=== PATIENT | male | born 1970 | race Caucasian/White ===

== ENCOUNTER → 2018-11-01 | Outpatient (CLI) | payer OTHER ==
--- NOTE | 2018-11-01 14:49 | RADIOLOGY IMAGING REPORT ---
FACILITY: [facility] - [place] PATIENT NAME: Jose Antunez : 1970 MR: [id number] V: [id number] EXAM DATE: ORDERING PHYSICIAN: JAMAR BALDERAS TECHNOLOGIST: Location: [facility] - [place] Patient: Jose Antunez : 1970 Visit/Account:[id number] Date of Sevice: 11/01/2018 Chest with lateral, two views. HISTORY: Chest pains. COMPARISON: None. The heart and mediastinum are unremarkable. Pulmonary vessels are unremarkable. The lungs are clear . The pleural surfaces are unremarkable. No pneumothorax. The bones are unremarkable. IMPRESSION: No evidence of acute cardiopulmonary disease. Report Dictated By: Francis Mendez MD at 11/01/2018 2:45 PM Report E-Signed By: Francis eMndez MD at 11/01/2018 2:45 PM [id number]
--- NOTE | 2018-11-01 15:05 | EKG ---
[place] [facility] [place] NAME: JORGE NASCIMENTO : [id number] MR: [id number] V: [id number] EXAM DATE: ORDERING PHYSICIAN: JAMAR BALDERAS TECHNOLOGIST: ILEANA Test Reason : CP Blood Pressure : / mmHG Vent. Rate : 076 BPM Atrial Rate : 076 BPM P-R Int : 140 ms QRS Dur : 080 ms QT Int : 370 ms P-R-T Axes : 061 020 052 degrees QTc Int : 416 ms Normal sinus rhythm Normal ECG No previous ECGs available Confirmed by Trenton Anthony ([id number]) on 11/01/2018 4:46:51 PM Referred By: ANDREY Confirmed By:Trenton Gonzales
== END ==
LOC: RAD 14:10
PROVIDERS: ATTEND Family Medicine
DX: R07.9 Chest pain, unspecified (principal)
CPT/HCPCS: 71046; 93005